=== PATIENT | female | born 1965 | race Caucasian/White ===

== ENCOUNTER 2018-10-14 21:13 | Emergency (ER) | payer BC ==
[~2018-10-14] VITALS: Ht 172.7 cm; Wt 79.5 kg
[2018-10-14 21:23] VITALS: TEMP 97.5
[2018-10-14 23:27] LABS: COLLECTION METHOD CLEAN CATCH
[2018-10-14 23:29] LABS: BASO % 0.2 % (0.0-2.0); EOS # 0.2 (0.0-0.7); EOS % 3.3 % (0-4.0); GRAN # 2.6 (1.4-6.5); GRAN % 56.8 % (42.2-75.2); HEMATOCRIT 37.1 % (37.0-47.0); HEMOGLOBIN 11.6 g/dl (12.5-16.0); LYMPH # 1.5 (1.2-3.4); LYMPH % 32.5 % (20.0-51.0); MEAN CELL VOLUME 85 fl (80.0-100.0); MEAN CORPUSCULAR HEMOGLOBIN 26 pg (27.0-31.0); MEAN CORPUSCULAR HGB CONC 31 g/dl (33.0-37.0); MEAN PLATELET VOLUME 10.5 fl (7.4-10.4); MONO # 0.3 (0.1-0.6); MONO % 6.8 % (1.7-9.3); PLATELET COUNT 115 K/mm3 (130-400); RED BLOOD COUNT 4.39 M/mm3 (4.10-5.30); REDCELL DISTRIBUTION WIDTH-CV 15.3 % (11.5-14.5)
[2018-10-14 23:34] LABS: MUCOUS Present /lpf; PH 5 (5-8); SQUAMOUS EPITHELIAL 0-2 /hpf; URINE APPEARANCE Clear; URINE BACTERIA None Seen /hpf; URINE BILIRUBIN Negative (NEGATIVE); URINE BLOOD Negative (NEGATIVE); URINE COLOR Yellow; URINE GLUCOSE 3+ (NEGATIVE); URINE KETONE Negative (NEGATIVE); URINE LEUKOCYTE ESTERASE Negative (NEGATIVE); URINE NITRATE Negative (NEGATIVE); URINE PROTEIN(semi-quant) Negative (NEGATIVE); URINE RBC 0-2 /hpf; URINE UROBILINOGEN Negative (NEGATIVE); URINE WBC 0-2 /hpf
[2018-10-14 23:39] LABS: ALANINE AMINOTRANSFERASE 24 U/L (9-52); ALBUMIN 4.1 gm/dL (3.5-5.0); ALKALINE PHOSPHATASE 114 U/L (50-136); ANION GAP 9 mmol/L (7-16); AST,SGOT 26 U/L (15-37); BILIRUBIN,TOTAL 0.3 mg/dL (0.0-1.0); BLOOD UREA NITROGEN 14 mg/dL (7-17); CALCIUM 10.2 mg/dL (8.4-10.2); CARBON DIOXIDE 27 mmol/L (22-30); CHLORIDE 105 mmol/L (98-107); CREATININE, serum 0.77 (0.52-1.25); GLUCOSE 118 mg/dL (74-106); POTASSIUM 4.1 mmol/L (3.4-5.0); SODIUM 142 mmol/L (137-145); TOTAL PROTEIN 7.4 gm/dL (6.4-8.2)
[2018-10-14 23:52] LABS: TROPONIN-I < 0.012 ng/mL (0.000-0.035)
[2018-10-14] MEDS ORDERED: MICARDIS HCT 251 TAB PO (23:59)
[2018-10-14] MEDS ORDERED: NORVASC 10MG10 MG PO (23:59)
[2018-10-15] MEDS ORDERED: NEXIUM 40MG40 MG PO
[2018-10-15] MEDS ORDERED: JARDIANCE25
[2018-10-15] MEDS ORDERED: JANUMET 1000 MG1 TA1 PO (00:01)
[2018-10-15] MEDS ORDERED: EFFEXOR-XR150 MG PO (00:01)
[2018-10-15] MEDS ORDERED: LIPITOR20 MG PO (00:02)
[2018-10-15] MEDS ORDERED: LEVO-DROMORAN2 MG PO (00:03)
[2018-10-15] MEDS ORDERED: PHENERGAN 25 TA25 MG PO (00:03)
[2018-10-15] MEDS ORDERED: FIORICET 325 MG1 TA1 PO (00:04)
[2018-10-15] MEDS ORDERED: TRESIBA FL100 UNIT/1 SQ (00:08)
[2018-10-15] MEDS ORDERED: HUMALOG100 U/ML SQ (00:09)
[2018-10-15] MEDS ORDERED: LASIX 20MG TABL20 MG PO (01:40)
[2018-10-15 01:48] VITALS: BP 133/93; PULSE 87
== END 2018-10-15 01:48 | disposition home or self-care (01) ==
LOC: COL.ER 21:13
PROVIDERS: Emergency Medicine
DX: R60.9 Edema, unspecified (principal); I10 Essential (primary) hypertension; E11.9 Type 2 diabetes mellitus without complications; F17.210 Nicotine dependence, cigarettes, uncomplicated; Z90.49 Acquired absence of other specified parts of digestive tract; Z90.710 Acquired absence of both cervix and uterus; Z98.890 Other specified postprocedural states; Z79.4 Long term (current) use of insulin
CPT/HCPCS: J1940